=== PATIENT | male | born 1970 | race Caucasian/White ===

== ENCOUNTER 2022-03-31 08:09 | Outpatient (CLI) | payer MEDICAID, SELFPAY ==
[2022-03-31 14:58] LABS: Albumin* 4.3 g/dL (3.3-5.0)
[2022-03-31 15:01] LABS: Alkaline Phosphatase* 66 U/L (40-150); Aspartate Amino Transferase* 60 U/L (12-35); Bilirubin Direct* 0.4 mg/dL (0.0-0.5); Bilirubin Total* 0.9 mg/dL (0.1-1.5); Total Protein* 7.3 g/dL (6.0-8.3)
[2022-03-31 15:02] LABS: Alanine Aminotransferase* 94 U/L (4-50); Lipase* 213 U/L (23-300)
== END 2022-03-31 08:10 | disposition home or self-care (01) ==
PROVIDERS: PCP Family Medicine; Visit Provider Family Medicine
DX: R10.9 Unspecified abdominal pain (principal); I10 Essential (primary) hypertension; E78.5 Hyperlipidemia, unspecified
CPT/HCPCS: 80076; 83690

== ENCOUNTER 2022-04-01 17:40 | Outpatient (CLI) | payer OTHER, SELFPAY ==
--- NOTE | 2022-04-01 18:00 | CRLHL7_ITS ---
For Patients: As a result of the Century Cures Act, medical imaging exams and procedure reports are released immediately into your electronic medical record. You may view this report before your referring provider. If you have questions, please contact your health care provider. INDICATION: Right upper quadrant pain and tenderness. Elevated AST/ALT. LIMITED ABDOMEN ULTRASOUND Technique: Multiple sonographic images were performed over the right upper quadrant. Findings: The liver has diffusely increased echogenicity consistent with fatty infiltration. No definite focal liver lesion is identified. The gallbladder appears normal with no stones, wall thickening, or pericholecystic fluid identified. There was no sonographic Gutierrez`s sign. No intrahepatic biliary dilatation is seen and the common bile duct is upper normal in caliber, measuring 6 mm in diameter. The visualized portions of the pancreas and right kidney are unremarkable. IMPRESSION: Fatty infiltration of the liver. Otherwise unremarkable right upper quadrant ultrasound. JACIEL CHARLES MD [facility] Dictated by Oscar Charles MD @ 04/01/2022 6:43:58 PM Dictated by: Oscar Charles MD @ 04/01/2022 18:45:24 (Electronically Signed)
== END 2022-04-01 17:41 | disposition home or self-care (01) ==
PROVIDERS: PCP Family Medicine; Visit Provider Family Medicine
DX: R10.11 Right upper quadrant pain (principal); K76.0 Fatty (change of) liver, not elsewhere classified
CPT/HCPCS: 76705

== ENCOUNTER 2022-12-01 16:04 | Outpatient (CLI) | payer OTHER, SELFPAY | END 2022-12-01 16:05 | disposition home or self-care (01) | PROVIDERS: PCP Family Medicine; Visit Provider Family Medicine | DX: I10 Essential (primary) hypertension (principal); E78.5 Hyperlipidemia, unspecified; M10.9 Gout, unspecified; Z12.5 Encounter for screening for malignant neoplasm of prostate | CPT/HCPCS: 80048; 80061; 84153; 84550 ==